=== PATIENT | male | born 1950 | race Caucasian/White ===

== ENCOUNTER 2018-03-24 09:28 | Day surgery (SDC) | payer MEDICARE, MEDICAID ==
[2018-03-20 12:04] LABS: BASOPHILS % (AUTO) 0.5 % (0-1); EOSINOPHILS # (AUTO) 0.1 X10'3 (0-0.9); EOSINOPHILS % (AUTO) 2.5 % (0-6); LYMPHOCYTES # (AUTO) 1.7 X10'3 (1.1-4.8); LYMPHOCYTES % (AUTO) 32.2 % (21-51); MEAN CORPUSCULAR HGB CONC 34.8 % (33.0-36.5); MEAN CORPUSCULAR VOLUME 100.6 FL (78-98); MEAN PLATELET VOLUME 7.1 FL (7.4-10.4); MONOCYTES # (AUTO) 0.5 X10'3 (0-0.9); MONOCYTES % (AUTO) 8.7 % (2-12); NEUTROPHILS # (AUTO) 2.9 X10'3 (1.8-7.7); NEUTROPHILS % (AUTO) 56.1 % (42-75); PRE OP HEMATOCRIT 41.4 % (42.0-52.0); PRE OP HEMOGLOBIN 14.4 g/dL (14.0-17.9); PRE OP PLATELET COUNT 272 X10'3 (140-440); RED BLOOD COUNT 4.11 X10'6 (4.70-6.10); RED CELL DISTRIBUTION WIDTH 12.9 % (11.5-14.5)
[2018-03-20 12:14] LABS: CLARITY,URINE CLEAR (Clear); COLOR,URINE YELLOW (Yellow); GLUCOSE, URINE NEGATIVE (Neg); KETONES,URINE TRACE mg/dl (Neg); LEUKOCYTE ESTERASE ,URINE NEGATIVE (Neg); NITRITES, URINE NEGATIVE (Neg); OCCULT BLOOD,URINE NEGATIVE (Neg); PH,URINE 6.5 (4.8-8.0); PROTEIN,URINE NEGATIVE (Neg)
[2018-03-20 12:15] LABS: UA COLLECTION TYPE NON-SPECIFIED
[2018-03-20 12:23] LABS: ALBUMIN 3.7 G/DL (3.4-5.0); ALKALINE PHOSPHATASE 73 IU/L (46-116); BLOOD UREA NITROGEN 16 MG/DL (7-18); BUN/CREATININE RATIO 16.3 (5.4-32.0); CALCIUM 8.8 MG/DL (8.5-10.1); CHLORIDE 105 MMOL/L (99-107); CREATININE 0.98 MG/DL (0.60-1.10); PRE OP ALT 34 U/L (30-65); PRE OP ANION GAP 9 (8-16); PRE OP AST 24 U/L (10-37); PRE OP BILIRUB, TOTAL 0.8 MG/DL (0.0-1.0); PRE OP GLUCOSE 77 MG/DL (70-104); PRE OP POTASSIUM 4.7 MMOL/L (3.4-5.1); PRE OP SODIUM 138 MMOL/L (135-145); TOTAL CARBON DIOXIDE 24.5 MMOL/L (24-32); TOTAL PROTEIN 7.4 G/DL (6.4-8.2); eGFR 76 ML/MIN
[~2018-03-24] VITALS: Ht 167.6 cm; Wt 68.0 kg
[2018-03-24] VITALS (8 sets, daily range): BP systolic 126–147; BP diastolic 61–87
[~2018-03-24 09:28] MED LIST: CLOP75TA15 PO; Cefazolin 2GM/50ML dext iso,osmotic IVPB IV ONE; LEVO100T PO; OMEP40CA37 PO; OXYC10TA47 PO; famotidine 20mg tablet PO ONE; ringers solution, lacted 1,000 ML IV SCH
[2018-03-24] MEDS ORDERED: ringers solution, lacted 1,000 ML IV SCH (09:34)
[2018-03-24] MEDS ORDERED: meperidine/PF 25mg/ml syringe IV PRN ×2 (09:35)
[2018-03-24] MEDS ORDERED: labetalol 20mg/4ml (5mg/ml) syringe IV PRN (09:35)
[2018-03-24] MEDS ORDERED: ondansetron/PF 4mg/2ml inj IV PRN (09:35)
[2018-03-24] MEDS ORDERED: morphine 4 MG/ML inj SYRINge IV PRN ×2 (09:35)
[2018-03-24] MEDS ORDERED: hydrALAZINE 20mg/ml inj. IV PRN (09:35)
[2018-03-24] MEDS ORDERED: albuterol 2.5 MG/3 ML nebule NEB ONE (10:55)
[2018-03-24] MEDS ORDERED: neostigmine methylsulfate 1 MG/ML 10ml vial ONE (11:37)
[2018-03-24] MEDS ORDERED: rocuronium 10mg/ml inj IV ONE (11:37)
[2018-03-24] MEDS ORDERED: midazolam 2 mg/2 ml injection ONE (11:37)
[2018-03-24] MEDS ORDERED: sevoflurane 250ml liquid IH ONE (11:37)
[2018-03-24] MEDS ORDERED: LIDOcaine 1%/PF 5ML 10 MG/ML VIAL ONE (11:37)
[2018-03-24] MEDS ORDERED: ondansetron/PF 4mg/2ml inj ONE (11:37)
[2018-03-24] MEDS ORDERED: fentaNYL/PF 50MCG/1 ML 2ML syringe ONE (11:37)
[2018-03-24] MEDS ORDERED: dexamethasone sod phosphate 10mg/ml inj ONE (11:37)
[2018-03-24] MEDS ORDERED: glycopyrrolate 0.2mg/ml inj ONE (11:37)
[2018-03-24] MEDS ORDERED: labetalol 20mg/4ml (5mg/ml) syringe IV ONE (11:37)
[2018-03-24] MEDS ORDERED: propofol 10mg/ml 20ml vial IV ONE (11:37)
== END 2018-03-24 14:00 | disposition home or self-care (01) ==
LOC: PAS 09:28
PROVIDERS: ATTEND Surgery
DX: K80.10 Calculus of gallbladder with chronic cholecystitis without obstruction (principal); E03.9 Hypothyroidism, unspecified; I10 Essential (primary) hypertension; J44.9 Chronic obstructive pulmonary disease, unspecified; F17.210 Nicotine dependence, cigarettes, uncomplicated; G89.29 Other chronic pain; F32.9 Major depressive disorder, single episode, unspecified; F41.8 Other specified anxiety disorders; I65.22 Occlusion and stenosis of left carotid artery; Z98.41 Cataract extraction status, right eye; Z98.42 Cataract extraction status, left eye; Z72.89 Other problems related to lifestyle; Z79.01 Long term (current) use of anticoagulants; Z86.73 Personal history of transient ischemic attack (TIA), and cerebral infarction without residual deficits; Z86.19 Personal history of other infectious and parasitic diseases; Z79.891 Long term (current) use of opiate analgesic; Z98.890 Other specified postprocedural states; Z79.899 Other long term (current) drug therapy; Z88.8 Allergy status to other drugs, medicaments and biological substances; Z80.9 Family history of malignant neoplasm, unspecified
CPT/HCPCS: 36415; 47562; 80053; 81003; 85025; 85610; 85730; 93005; 94640; 94760; A6251; J0690; J1100; J2001; J2250; J2405; J2704; J2710; J3010; J3490; J7120; 88304; A7000

== ENCOUNTER 2022-07-07 07:31 | Inpatient (IN) | payer MEDICARE, MEDICAID ==
[~2022-07-07] VITALS: Ht 167.6 cm; Wt 75.0 kg
[~2022-07-07 07:31] MED LIST changes: +ALBU8HFA IH; +ASPI-1397 PO; +ATOR20TA66 PO; +CARV3.123 PO; -Cefazolin 2GM/50ML dext iso,osmotic IVPB IV ONE; -LEVO100T PO; +LEVO125T PO; +OMEP40CA21 PO; -OMEP40CA37 PO; +PRED10TA PO; -famotidine 20mg tablet PO ONE; -ringers solution, lacted 1,000 ML IV SCH
[2022-07-07] MEDS ORDERED: normal saline 1000ml 1,000 ML IV ONE (07:40)
[2022-07-07] MEDS ORDERED: dexamethasone sod phosphate 10mg/ml inj IV STA (07:44)
[2022-07-07] MEDS ORDERED: methylPREDNISolone sod succ 125mg/2ml vial IV ONE (07:45)
[2022-07-07] MEDS ORDERED: albuterol 2.5 MG/3 ML nebule CONTNEB PRN (07:45)
[2022-07-07] MEDS ORDERED: ipratropium 0.5 MG/2.5ML nebule IH PRN (07:45)
[2022-07-07 08:12] LABS: ABG BASE EXCESS -2.2 mmol/L (-2.0-2.0); ABG HCO3 23.4 mmol/L (22.0-26.0); ABG OXYGEN SATURATION 95.6 % (94-97); ABG PCO2 (T) 42.2 mmHg (35.0-48.0); ABG PO2 (T) 75.2 mmHg (75.0-100.0); ALLEN'S TEST POSITIVE; FCOHb 0.7 % (0.0-3.9); FMetHb 0.1 % (0.0-1.5); FO2Hb 94.8 % (94-97); PATIENT TEMPERATURE 36.4; RESPIRATORY RATE 10 b/min; TIDAL VOLUME 597 mL; TOTAL HEMOGLOBIN 14.8 G/dl (14.0-17.9)
[2022-07-07 08:15] LABS: BASOPHILS # (AUTO) 0.1 X10'3 (0-0.2); BASOPHILS % (AUTO) 1.1 % (0-1); EOSINOPHILS # (AUTO) 0.8 X10'3 (0-0.9); EOSINOPHILS % (AUTO) 10.4 % (0-6); HEMATOCRIT 41.2 % (42.0-52.0); HEMOGLOBIN 14.3 g/dl (14.0-17.9); LYMPHOCYTES # (AUTO) 1.9 X10'3 (1.1-4.8); MEAN CORPUSCULAR HGB CONC 34.7 g/dL (33.0-36.5); MEAN CORPUSCULAR VOLUME 100.9 FL (78-98); MEAN PLATELET VOLUME 7.6 FL (7.4-10.4); MONOCYTES # (AUTO) 0.6 X10'3 (0-0.9); MONOCYTES % (AUTO) 7.8 % (2-12); NEUTROPHILS # (AUTO) 4.3 X10'3 (1.8-7.7); NEUTROPHILS % (AUTO) 55.7 % (42-75); PLATELET COUNT 255 X10'3 (140-440); RED BLOOD COUNT 4.08 X10'6 (4.70-6.10); WHITE BLOOD COUNT 7.7 X10'3 (4.5-11.0)
[2022-07-07 08:27] LABS: ALANINE AMINOTRANSFERASE 51 U/L (12-78); ALBUMIN 3.7 G/DL (3.4-5.0); ALBUMIN/GLOBULIN RATIO 1.1 (1.1-1.5); ALKALINE PHOSPHATASE 56 IU/L (46-116); ANION GAP 10 (8-16); ASPARTATE AMINO TRANSFERASE 25 U/L (10-37); BILIRUBIN,TOTAL 0.7 MG/DL (0.1-1.0); BLOOD UREA NITROGEN 17 MG/DL (7-18); BUN/CREATININE RATIO 16.5 (5.4-32.0); CALCIUM 8.6 MG/DL (8.5-10.1); CHLORIDE 107 MMOL/L (99-107); CREATININE 1.03 MG/DL (0.60-1.10); GLUCOSE 122 MG/DL (70-104); MAGNESIUM 1.9 MG/DL (1.5-2.4); POTASSIUM 4.1 MMOL/L (3.5-5.1); SODIUM 141 MMOL/L (135-145); TOTAL CARBON DIOXIDE 23.7 MMOL/L (24-32); eGFR 71 ML/MIN
[2022-07-07] MEDS ORDERED: aspirin 81mg tab.chew PO ONE (08:45)
[2022-07-07] MEDS ORDERED: magnesium hydroxide 30ml (MOM) UD suspension PO PRN (09:10)
[2022-07-07] MEDS ORDERED: potassium Cl 40MEQ/1/2NS 520ml 520 ML IV PRN (09:10)
[2022-07-07] MEDS ORDERED: PERFLUTREN PROTEIN-A MICROSPHR (Optison) 0.22 MG/ML 3ML VIAL IV ONE (09:10)
[2022-07-07] MEDS ORDERED: magnesium Cl slow-release 64mg tablet PO PRN (09:10)
[2022-07-07] MEDS ORDERED: potassium Cl 20 mEq SR tablet PO PRN ×2 (09:10)
[2022-07-07] MEDS ORDERED: ondansetron/PF 4mg/2ml inj IV PRN (09:10)
[2022-07-07] MEDS ORDERED: mag hydrox/Alum hydrox/simeth 30ml oral suspension PO PRN (09:10)
[2022-07-07] MEDS ORDERED: magnesium 4gm in 100ml NS 100 ML IV PRN (09:10)
[2022-07-07] MEDS ORDERED: acetaminophen 325mg tablet PO PRN (09:10)
[2022-07-07] MEDS: levoFLOXACIN-Levaquin 500mg/D5 100 ML IV SCH (09:39)
[2022-07-07] MEDS: ipratropium/albuterol 3ml nebule NEB SCH ×4 (11:51→23:20)
[2022-07-07 12:01] LABS: CLARITY,URINE CLEAR (Clear); COLOR,URINE YELLOW (Yellow); GLUCOSE, URINE NEGATIVE (Neg); KETONES,URINE NEGATIVE (Neg); LEUKOCYTE ESTERASE ,URINE NEGATIVE (Neg); NITRITES, URINE NEGATIVE (Neg); OCCULT BLOOD,URINE NEGATIVE (Neg); PROTEIN,URINE NEGATIVE (Neg); UROBILINOGEN,URINE 0.2 E.U/dL (0.2-1.0)
[2022-07-07 12:04] LABS: UA COLLECTION TYPE CLN CATCH MIDSTREAM
[2022-07-07 12:06] LABS: URINE AMPHETAMINE SCREEN NEGATIVE (Neg); URINE BARBITUATE SCREEN NEGATIVE (Neg); URINE BENZODIAZEPINES SCREEN NEGATIVE (Neg); URINE CANNABINOID SCREEN NEGATIVE (Neg); URINE COCAINE SCREEN NEGATIVE (Neg); URINE METHADONE SCREEN NEGATIVE (Neg); URINE OPIATE SCREEN POSITIVE (Neg); URINE PHENCYCLIDINE SCREEN NEGATIVE (Neg)
--- NOTE | 2022-07-07 12:19 | NUR ---
DR FAITH AT BEDSIDE STATES HE BELIEVES PT IS HAVING A COPD EXACERBATION
[2022-07-07] MEDS: methylPREDNISolone sod succ 125mg/2ml vial IV SCH ×2 (15:25→20:57)
[2022-07-07] MEDS: normal saline 1000ml 1,000 ML IV SCH (15:31)
--- NOTE | 2022-07-07 15:44 | NUR ---
PT REQUESTING BREATHING TX, WHEEZING AND COARSE BREATH SOUNDS SOB. PAGE SENT TO RT
[2022-07-07] MEDS: K and/or MAG REPLACEMENT MC SCH (20:00)
[2022-07-07] MEDS: docusate sod 100mg capsule PO SCH ×3 (20:00→20:58)
[2022-07-07] MEDS: doxycycline inj 100 MG in normal saline 100ml IV soln 100 ML IV SCH (20:55)
[2022-07-07] MEDS: enoxaparin 30mg/0.3ml syringe SQ SCH (20:56)
[2022-07-08] VITALS (8 sets, daily range): BP systolic 91–144; BP diastolic 56–94
[2022-07-08] MEDS: methylPREDNISolone sod succ 125mg/2ml vial IV SCH ×4 (02:00→20:22)
[2022-07-08] MEDS: ipratropium/albuterol 3ml nebule NEB SCH ×6 (03:27→23:26)
[2022-07-08 07:24] LABS: BASOPHILS % (AUTO) 0.1 % (0-1); EOSINOPHILS % (AUTO) 0 % (0-6); HEMATOCRIT 39.9 % (42.0-52.0); HEMOGLOBIN 13.2 g/dl (14.0-17.9); LYMPHOCYTES # (AUTO) 0.9 X10'3 (1.1-4.8); LYMPHOCYTES % (AUTO) 5.5 % (21-51); MEAN CORPUSCULAR HEMOGLOBIN 33.5 PG (27.0-31.0); MEAN CORPUSCULAR HGB CONC 33.1 g/dL (33.0-36.5); MEAN CORPUSCULAR VOLUME 101.4 FL (78-98); MONOCYTES # (AUTO) 0.3 X10'3 (0-0.9); MONOCYTES % (AUTO) 1.8 % (2-12); NEUTROPHILS # (AUTO) 14.3 X10'3 (1.8-7.7); NEUTROPHILS % (AUTO) 92.6 % (42-75); PLATELET COUNT 243 X10'3 (140-440); RED BLOOD COUNT 3.93 X10'6 (4.70-6.10); RED CELL DISTRIBUTION WIDTH 12.6 % (11.5-14.5); WHITE BLOOD COUNT 15.5 X10'3 (4.5-11.0)
[2022-07-08 07:54] LABS: ALBUMIN 3.2 G/DL (3.4-5.0); ANION GAP 12 (8-16); BLOOD UREA NITROGEN 22 MG/DL (7-18); BUN/CREATININE RATIO 23.2 (5.4-32.0); CALCIUM 8.8 MG/DL (8.5-10.1); CHLORIDE 107 MMOL/L (99-107); CREATININE 0.95 MG/DL (0.60-1.10); GLUCOSE 152 MG/DL (70-104); POTASSIUM 3.9 MMOL/L (3.5-5.1); SODIUM 141 MMOL/L (135-145); TOTAL CARBON DIOXIDE 22.3 MMOL/L (24-32); eGFR 78 ML/MIN
[2022-07-08] MEDS: docusate sod 100mg capsule PO SCH ×2 (08:00→20:23)
[2022-07-08] MEDS: K and/or MAG REPLACEMENT MC SCH ×2 (08:00→19:24)
[2022-07-08] MEDS: levoFLOXACIN-Levaquin 500mg/D5 100 ML IV SCH (08:29)
[2022-07-08] MEDS: enoxaparin 30mg/0.3ml syringe SQ SCH ×2 (08:30→20:22)
[2022-07-08] MEDS: doxycycline inj 100 MG in normal saline 100ml IV soln 100 ML IV SCH (10:15)
[2022-07-08] MEDS ORDERED: albuterol 2.5 MG/3 ML nebule NEB SCH (11:00)
[2022-07-08] MEDS: oxyCODONE IR 5mg (immed. release) tablet PO PRN ×2 (11:20→20:21)
[2022-07-08] MEDS: carVEDilol 3.125mg tablet PO SCH (20:23)
[2022-07-09 02:00] VITALS: BP 118/64
[2022-07-09] MEDS: methylPREDNISolone sod succ 125mg/2ml vial IV SCH ×3 (03:23→20:07)
[2022-07-09] MEDS: ipratropium/albuterol 3ml nebule NEB SCH ×6 (03:28→22:53)
[2022-07-09 06:00] VITALS: BP 118/57
[2022-07-09 07:24] LABS: BASOPHILS % (AUTO) 0.1 % (0-1); EOSINOPHILS % (AUTO) 0 % (0-6); HEMATOCRIT 36.2 % (42.0-52.0); HEMOGLOBIN 12.3 g/dl (14.0-17.9); LYMPHOCYTES # (AUTO) 0.8 X10'3 (1.1-4.8); LYMPHOCYTES % (AUTO) 4.7 % (21-51); MEAN CORPUSCULAR HEMOGLOBIN 34.4 PG (27.0-31.0); MEAN CORPUSCULAR VOLUME 101.3 FL (78-98); MEAN PLATELET VOLUME 7.9 FL (7.4-10.4); MONOCYTES # (AUTO) 0.7 X10'3 (0-0.9); MONOCYTES % (AUTO) 3.8 % (2-12); NEUTROPHILS # (AUTO) 15.9 X10'3 (1.8-7.7); NEUTROPHILS % (AUTO) 91.4 % (42-75); PLATELET COUNT 247 X10'3 (140-440); RED BLOOD COUNT 3.57 X10'6 (4.70-6.10); RED CELL DISTRIBUTION WIDTH 13.1 % (11.5-14.5); WHITE BLOOD COUNT 17.4 X10'3 (4.5-11.0)
[2022-07-09] MEDS: docusate sod 100mg capsule PO SCH ×2 (08:00→20:08)
[2022-07-09] MEDS: K and/or MAG REPLACEMENT MC SCH ×2 (08:00→18:43)
[2022-07-09] MEDS: pantoprazole 40mg Tablet.DR PO SCH (08:06)
[2022-07-09] MEDS: carVEDilol 3.125mg tablet PO SCH ×2 (08:07→20:08)
[2022-07-09] MEDS: levoTHYROXINE 125mcg tablet PO SCH (08:07)
[2022-07-09] MEDS: clopidogrel 75mg tablet PO SCH (08:07)
[2022-07-09] MEDS: aspirin 81mg, enteric-coated 1 TAB TABLET.DR PO SCH (08:07)
[2022-07-09] MEDS: atorvastatin 20mg tablet PO SCH (08:07)
[2022-07-09] MEDS: oxyCODONE IR 5mg (immed. release) tablet PO PRN (08:09)
[2022-07-09] MEDS: levoFLOXACIN-Levaquin 500mg/D5 100 ML IV SCH (08:10)
[2022-07-09] MEDS: enoxaparin 30mg/0.3ml syringe SQ SCH ×2 (08:10→20:08)
[2022-07-09 08:48] LABS: CHLORIDE 110 MMOL/L (99-107); SODIUM 141 MMOL/L (135-145)
[2022-07-09 08:49] LABS: ALBUMIN 2.8 G/DL (3.4-5.0); ANION GAP 10 (8-16); BLOOD UREA NITROGEN 22 MG/DL (7-18); BUN/CREATININE RATIO 19.6 (5.4-32.0); CALCIUM 7.9 MG/DL (8.5-10.1); CREATININE 1.12 MG/DL (0.60-1.10); GLUCOSE 158 MG/DL (70-104); MAGNESIUM 2.2 MG/DL (1.5-2.4); TOTAL CARBON DIOXIDE 20.7 MMOL/L (24-32); eGFR 65 ML/MIN
[2022-07-09] MEDS: normal saline 1000ml 1,000 ML IV SCH (09:10)
[2022-07-09 10:40] VITALS: BP 125/68
[2022-07-09 14:35] VITALS: BP 124/69
[2022-07-09 18:00] VITALS: BP 134/78
--- NOTE | 2022-07-09 18:20 | NUR ---
[place] documentation: I have reviewed and agree with all interventions, assessments performed and documented by JAMAL Breen.
[2022-07-09 22:00] VITALS: BP 133/75
[2022-07-10] MEDS: normal saline 1000ml 1,000 ML IV SCH (00:47)
[2022-07-10 02:00] VITALS: BP 125/67
[2022-07-10] MEDS: ipratropium/albuterol 3ml nebule NEB SCH ×2 (02:31→08:06)
[2022-07-10 06:55] LABS: BASOPHILS % (AUTO) 0 % (0-1); EOSINOPHILS % (AUTO) 0.1 % (0-6); HEMATOCRIT 36.5 % (42.0-52.0); HEMOGLOBIN 12.5 g/dl (14.0-17.9); LYMPHOCYTES # (AUTO) 1.1 X10'3 (1.1-4.8); LYMPHOCYTES % (AUTO) 8.1 % (21-51); MEAN CORPUSCULAR HGB CONC 34.4 g/dL (33.0-36.5); MEAN CORPUSCULAR VOLUME 101.7 FL (78-98); MEAN PLATELET VOLUME 7.6 FL (7.4-10.4); MONOCYTES # (AUTO) 0.7 X10'3 (0-0.9); MONOCYTES % (AUTO) 4.8 % (2-12); NEUTROPHILS # (AUTO) 12.1 X10'3 (1.8-7.7); PLATELET COUNT 239 X10'3 (140-440); RED BLOOD COUNT 3.59 X10'6 (4.70-6.10); WHITE BLOOD COUNT 13.9 X10'3 (4.5-11.0)
[2022-07-10] MEDS: levoTHYROXINE 125mcg tablet PO SCH (06:59)
[2022-07-10 07:09] LABS: ALBUMIN 2.9 G/DL (3.4-5.0); ANION GAP 8 (8-16); BLOOD UREA NITROGEN 24 MG/DL (7-18); BUN/CREATININE RATIO 25.3 (5.4-32.0); CALCIUM 8.2 MG/DL (8.5-10.1); CHLORIDE 108 MMOL/L (99-107); CREATININE 0.95 MG/DL (0.60-1.10); GLUCOSE 129 MG/DL (70-104); MAGNESIUM 2.3 MG/DL (1.5-2.4); POTASSIUM 4.1 MMOL/L (3.5-5.1); SODIUM 140 MMOL/L (135-145); TOTAL CARBON DIOXIDE 23.7 MMOL/L (24-32); eGFR 78 ML/MIN
[2022-07-10] MEDS: K and/or MAG REPLACEMENT MC SCH (08:00)
[2022-07-10] MEDS: docusate sod 100mg capsule PO SCH (08:00)
[2022-07-10] MEDS: enoxaparin 30mg/0.3ml syringe SQ SCH (08:25)
[2022-07-10] MEDS: methylPREDNISolone sod succ 125mg/2ml vial IV SCH (08:26)
[2022-07-10] MEDS: oxyCODONE IR 5mg (immed. release) tablet PO PRN (08:27)
[2022-07-10] MEDS: aspirin 81mg, enteric-coated 1 TAB TABLET.DR PO SCH (08:27)
[2022-07-10] MEDS: atorvastatin 20mg tablet PO SCH (08:27)
[2022-07-10] MEDS: pantoprazole 40mg Tablet.DR PO SCH (08:27)
[2022-07-10] MEDS: carVEDilol 3.125mg tablet PO SCH (08:27)
[2022-07-10] MEDS: clopidogrel 75mg tablet PO SCH (08:27)
[2022-07-10] MEDS: levoFLOXACIN-Levaquin 500mg/D5 100 ML IV SCH (08:28)
--- NOTE | 2022-07-10 09:32 | NUR ---
Initial: Pt admit for acute respiratory failure with hypoxemia, COPD exacerbation, acute bronchitis, and type II PR. Currently on a heart healthy diet and eating well, documented with average 95% PO intake meeting estimated nutrient needs. Noted pt has been refusing milk per EMR, d/w dietary to not send milk to drink. LBM 07/09 per I&O. No nutrition intervention implemented at this time. Will continue to follow. Recommendations: 1) Continue heart healthy diet; no milk to drink 2) Routine bowel care 3) Weekly scaled weights Addendum: 07/10/22 at [address] Amended: Links added.
--- NOTE | 2022-07-10 09:50 | NUR ---
PAGER ID: [phone] MESSAGE: [phone] Huerta-family threatening to leave AMA, says he was to discharge by 10am. Jamshid [id number]
[2022-07-10] MEDS ORDERED: PRED10TA23 PO (09:54)
[2022-07-10] MEDS ORDERED: LEVO-65 PO (09:54)
--- NOTE | 2022-07-10 10:29 | NUR ---
PT discharged to home. Discharge instructions given with verbalized understanding. IV and telemetry discontinued. Accompanied home by son, left by wheelchair.
== END 2022-07-10 10:27 | disposition home health service (06) | DRG 189 ==
LOC: ER 07:31 → ED HOLD 09:12 → EDBEDREQ 19:04 → PCU 3S 07-08 00:25
PROVIDERS: ADMIT Family Medicine; ATTEND Family Medicine
PROC: 5A09357 Assistance with Respiratory Ventilation, Less than 24 Consecutive Hours, Continuous Positive Airway Pressure (ICD-10-PCS; principal; 2022-07-07)
DX: J96.01 Acute respiratory failure with hypoxia (principal); I21.A1 Myocardial infarction type 2; J44.1 Chronic obstructive pulmonary disease with (acute) exacerbation; J44.0 Chronic obstructive pulmonary disease with (acute) lower respiratory infection; J20.9 Acute bronchitis, unspecified; Z20.822 Contact with and (suspected) exposure to COVID-19; E03.9 Hypothyroidism, unspecified; E78.5 Hyperlipidemia, unspecified; F17.210 Nicotine dependence, cigarettes, uncomplicated; B19.20 Unspecified viral hepatitis C without hepatic coma; K21.9 Gastro-esophageal reflux disease without esophagitis; I25.10 Atherosclerotic heart disease of native coronary artery without angina pectoris; I25.2 Old myocardial infarction; Z80.9 Family history of malignant neoplasm, unspecified; Z86.16 Personal history of COVID-19; Z86.73 Personal history of transient ischemic attack (TIA), and cerebral infarction without residual deficits; Z88.8 Allergy status to other drugs, medicaments and biological substances; Z95.5 Presence of coronary angioplasty implant and graft; Z71.6 Tobacco abuse counseling
CPT/HCPCS: 36415; 36600; 71045; 80048; 80053; 80305; 81003; 82803; 83735; 83880; 84484; 85018; 85025; 87502; 87503; 87811; 93005; 93308; 94640; 94660; 94760; 96361; 96374; 96375; 99285; A7015; G0378; J1100; J1650; J1956; J2930; J3490; J7030

== ENCOUNTER 2022-08-16 19:46 | Emergency (ER) | payer MEDICARE, MEDICAID ==
[~2022-08-16] VITALS: Ht 165.1 cm; Wt 79.5 kg
[~2022-08-16 19:46] MED LIST changes: -PRED10TA PO
--- NOTE | 2022-08-16 20:49 | NUR ---
PT TO LOBBY WITH OXYGEN
[2022-08-16 22:57] LABS: BASOPHILS # (AUTO) 0.1 X10'3 (0-0.2); BASOPHILS % (AUTO) 1.1 % (0-1); EOSINOPHILS # (AUTO) 0.6 X10'3 (0-0.9); EOSINOPHILS % (AUTO) 7.5 % (0-6); HEMATOCRIT 40.2 % (42.0-52.0); LYMPHOCYTES # (AUTO) 2.4 X10'3 (1.1-4.8); LYMPHOCYTES % (AUTO) 30.6 % (21-51); MEAN CORPUSCULAR HEMOGLOBIN 34.8 PG (27.0-31.0); MEAN CORPUSCULAR HGB CONC 34.7 g/dL (33.0-36.5); MEAN CORPUSCULAR VOLUME 100.3 FL (78-98); MEAN PLATELET VOLUME 7.3 FL (7.4-10.4); MONOCYTES # (AUTO) 0.7 X10'3 (0-0.9); MONOCYTES % (AUTO) 8.4 % (2-12); NEUTROPHILS # (AUTO) 4.2 X10'3 (1.8-7.7); NEUTROPHILS % (AUTO) 52.4 % (42-75); PLATELET COUNT 247 X10'3 (140-440); RED BLOOD COUNT 4.01 X10'6 (4.70-6.10); RED CELL DISTRIBUTION WIDTH 13.1 % (11.5-14.5)
[2022-08-16 23:12] LABS: ALANINE AMINOTRANSFERASE 82 U/L (12-78); ALBUMIN 3.8 G/DL (3.4-5.0); ALBUMIN/GLOBULIN RATIO 1.2 (1.1-1.5); ALKALINE PHOSPHATASE 53 IU/L (46-116); ANION GAP 8 (8-16); ASPARTATE AMINO TRANSFERASE 33 U/L (10-37); BILIRUBIN,TOTAL 0.7 MG/DL (0.1-1.0); BLOOD UREA NITROGEN 19 MG/DL (7-18); CALCIUM 8.7 MG/DL (8.5-10.1); CHLORIDE 108 MMOL/L (99-107); GLUCOSE 131 MG/DL (70-104); POTASSIUM 3.9 MMOL/L (3.5-5.1); SODIUM 142 MMOL/L (135-145); TOTAL CARBON DIOXIDE 26.1 MMOL/L (24-32); TOTAL PROTEIN 6.9 G/DL (6.4-8.2); eGFR 74 ML/MIN
[2022-08-16] MEDS ORDERED: ipratropium/albuterol 3ml nebule NEB ONE (23:20)
[2022-08-17] MEDS ORDERED: DOXYCYCLINE 100MG CAPSULE PO STA (01:08)
[2022-08-17] MEDS ORDERED: normal saline 1000ML IV soln IVB ONE (01:10)
[2022-08-17] MEDS ORDERED: albuterol 2.5 MG/3 ML nebule CONTNEB PRN (01:10)
[2022-08-17] MEDS ORDERED: methylPREDNISolone sod succ 125mg/2ml vial IV ONE (01:10)
--- NOTE | 2022-08-17 03:19 | NUR ---
BOWEN: SON [phone] CALL WHEN TIME TO BE DC
[2022-08-17] MEDS ORDERED: DOXY-1 PO (05:41)
[2022-08-17] MEDS ORDERED: PRED20TA PO (05:41)
[2022-08-17 06:11] VITALS: BP 143/83
== END 2022-08-17 06:16 | disposition home or self-care (01) ==
LOC: ER 19:46
DX: J44.1 Chronic obstructive pulmonary disease with (acute) exacerbation (principal); J40 Bronchitis, not specified as acute or chronic; Z88.6 Allergy status to analgesic agent; Z87.891 Personal history of nicotine dependence
CPT/HCPCS: 36415; 71045; 80053; 83880; 84484; 85025; 93005; 94640; 94644; 96374; 99285; J2930; J7030; J7040; A7015

== ENCOUNTER 2023-01-04 16:53 | Emergency (ER) | payer MEDICARE, MEDICAID ==
[~2023-01-04] VITALS: Ht 167.6 cm; Wt 75.0 kg
[2023-01-04 17:11] LABS: BASOPHILS # (AUTO) 0.1 X10'3 (0-0.2); BASOPHILS % (AUTO) 1.1 % (0-1); EOSINOPHILS # (AUTO) 0.7 X10'3 (0-0.9); HEMATOCRIT 40.8 % (42.0-52.0); HEMOGLOBIN 14.2 g/dl (14.0-17.9); LYMPHOCYTES # (AUTO) 2.4 X10'3 (1.1-4.8); LYMPHOCYTES % (AUTO) 32.2 % (21-51); MEAN CORPUSCULAR HEMOGLOBIN 34.8 PG (27.0-31.0); MEAN CORPUSCULAR HGB CONC 34.7 g/dL (33.0-36.5); MEAN CORPUSCULAR VOLUME 100.4 FL (78-98); MEAN PLATELET VOLUME 7.2 FL (7.4-10.4); MONOCYTES # (AUTO) 0.6 X10'3 (0-0.9); MONOCYTES % (AUTO) 8.4 % (2-12); NEUTROPHILS # (AUTO) 3.5 X10'3 (1.8-7.7); NEUTROPHILS % (AUTO) 48.3 % (42-75); PLATELET COUNT 313 X10'3 (140-440); RED BLOOD COUNT 4.07 X10'6 (4.70-6.10); RED CELL DISTRIBUTION WIDTH 13.1 % (11.5-14.5); WHITE BLOOD COUNT 7.3 X10'3 (4.5-11.0)
--- NOTE | 2023-01-04 17:19 | NUR ---
EKG 1705
[2023-01-04 17:24] LABS: ALANINE AMINOTRANSFERASE 61 U/L (12-78); ALBUMIN 3.5 G/DL (3.4-5.0); ALKALINE PHOSPHATASE 61 IU/L (46-116); ANION GAP 13 (8-16); ASPARTATE AMINO TRANSFERASE 28 U/L (10-37); BILIRUBIN,TOTAL 0.6 MG/DL (0.1-1.0); BLOOD UREA NITROGEN 18 MG/DL (7-18); BUN/CREATININE RATIO 15.1 (10.0-20.0); CALCIUM 8.4 MG/DL (8.5-10.1); CHLORIDE 105 MMOL/L (99-107); CREATININE 1.19 MG/DL (0.60-1.10); GLUCOSE 115 MG/DL (70-104); POTASSIUM 3.9 MMOL/L (3.5-5.1); SODIUM 143 MMOL/L (135-145); TOTAL CARBON DIOXIDE 24.9 MMOL/L (24-32); TOTAL PROTEIN 6.9 G/DL (6.4-8.2); eGFR 60 ML/MIN
[2023-01-04] MEDS ORDERED: methylPREDNISolone sod succ 125mg/2ml vial IV ONE (19:40)
[2023-01-04] MEDS ORDERED: albuterol 2.5 MG/3 ML nebule CONTNEB PRN (19:40)
[2023-01-04] MEDS ORDERED: azithromycin 250mg tablet PO ONE (19:40)
[2023-01-04] MEDS ORDERED: PRED20TA PO (21:34)
[2023-01-04] MEDS ORDERED: AZIT-164 PO (21:34)
[2023-01-04 21:49] VITALS: BP 108/66
== END 2023-01-04 21:50 | disposition home or self-care (01) ==
LOC: ER 16:54
DX: J44.1 Chronic obstructive pulmonary disease with (acute) exacerbation (principal); F17.200 Nicotine dependence, unspecified, uncomplicated; Z88.6 Allergy status to analgesic agent
CPT/HCPCS: 36415; 71045; 80053; 83880; 84484; 85025; 93005; 94640; 94644; 96374; 99285; J2930; 94760; A7015

== ENCOUNTER 2023-01-30 10:18 | Emergency (ER) | payer MEDICARE, MEDICAID ==
[~2023-01-30] VITALS: Ht 167.6 cm; Wt 75.0 kg
[2023-01-30] MEDS ORDERED: normal saline 1000ML IV soln IVB ONE (10:50)
[2023-01-30] MEDS ORDERED: methylPREDNISolone sod succ 125mg/2ml vial IV ONE (10:50)
[2023-01-30] MEDS ORDERED: ipratropium/albuterol 3ml nebule NEB ONE (10:50)
[2023-01-30 11:12] LABS: ABG BASE EXCESS -1.1 mmol/L (-2.0-2.0); ABG HCO3 23.7 mmol/L (22.0-26.0); ABG OXYGEN SATURATION 90.6 % (94-97); ABG PCO2 (T) 39.6 mmHg (35.0-48.0); ABG PO2 (T) 59.1 mmHg (75.0-100.0); ALLEN'S TEST POSITIVE; FCOHb 1.7 % (0.0-3.9); FLOW 0 L/min; FMetHb 0.2 % (0.0-1.5); FO2Hb 88.9 % (94-97); PATIENT TEMPERATURE 36.7; TOTAL HEMOGLOBIN 15.1 G/dl (14.0-17.9)
[2023-01-30 11:45] LABS: BASOPHILS # (AUTO) 0.1 X10'3 (0-0.2); EOSINOPHILS # (AUTO) 0.7 X10'3 (0-0.9); EOSINOPHILS % (AUTO) 11.5 % (0-6); HEMATOCRIT 41.6 % (42.0-52.0); HEMOGLOBIN 14.3 g/dl (14.0-17.9); LYMPHOCYTES # (AUTO) 1.5 X10'3 (1.1-4.8); LYMPHOCYTES % (AUTO) 24.9 % (21-51); MEAN CORPUSCULAR HEMOGLOBIN 34.9 PG (27.0-31.0); MEAN CORPUSCULAR HGB CONC 34.3 g/dL (33.0-36.5); MEAN CORPUSCULAR VOLUME 101.6 FL (78-98); MEAN PLATELET VOLUME 7.2 FL (7.4-10.4); MONOCYTES # (AUTO) 0.6 X10'3 (0-0.9); MONOCYTES % (AUTO) 10.4 % (2-12); NEUTROPHILS # (AUTO) 3.3 X10'3 (1.8-7.7); NEUTROPHILS % (AUTO) 52.2 % (42-75); PLATELET COUNT 266 X10'3 (140-440); RED CELL DISTRIBUTION WIDTH 13.3 % (11.5-14.5); WHITE BLOOD COUNT 6.2 X10'3 (4.5-11.0)
[2023-01-30] MEDS ORDERED: albuterol 2.5 MG/3 ML nebule CONTNEB ONE (11:45)
[2023-01-30 12:04] LABS: ALANINE AMINOTRANSFERASE 87 U/L (12-78); ALBUMIN 3.7 G/DL (3.4-5.0); ALBUMIN/GLOBULIN RATIO 1.1 (1.1-1.5); ALKALINE PHOSPHATASE 56 IU/L (46-116); ANION GAP 8 (8-16); ASPARTATE AMINO TRANSFERASE 44 U/L (10-37); BILIRUBIN,TOTAL 1.1 MG/DL (0.1-1.0); BLOOD UREA NITROGEN 14 MG/DL (7-18); BUN/CREATININE RATIO 13.1 (10.0-20.0); CALCIUM 9.2 MG/DL (8.5-10.1); CHLORIDE 101 MMOL/L (99-107); CREATININE 1.07 MG/DL (0.60-1.10); GLUCOSE 116 MG/DL (70-104); POTASSIUM 4.5 MMOL/L (3.5-5.1); SODIUM 137 MMOL/L (135-145); TOTAL CARBON DIOXIDE 27.6 MMOL/L (24-32); TOTAL PROTEIN 7.2 G/DL (6.4-8.2); eGFR 68 ML/MIN
[2023-01-30] MEDS ORDERED: ALBU6.7H14 INH (13:49)
[2023-01-30] MEDS ORDERED: BUDE10.7 INH (13:49)
[2023-01-30] MEDS ORDERED: DOXY-11 PO (13:49)
[2023-01-30 14:11] VITALS: BP 139/75
[2023-01-30] MEDS ORDERED: PRED20TA PO (15:35)
== END 2023-01-30 15:46 | disposition home or self-care (01) ==
LOC: ER 10:18
DX: J45.901 Unspecified asthma with (acute) exacerbation (principal); I11.0 Hypertensive heart disease with heart failure; J44.9 Chronic obstructive pulmonary disease, unspecified; Z90.49 Acquired absence of other specified parts of digestive tract; Z88.6 Allergy status to analgesic agent; Z88.1 Allergy status to other antibiotic agents; Z79.899 Other long term (current) drug therapy
CPT/HCPCS: 36415; 36600; 70450; 71045; 80053; 82803; 83605; 83880; 84484; 85018; 85025; 85610; 87040; 93005; 94640; 94644; 96374; 99285; J2930; J7030; 94760; A4615